=== PATIENT | female | born 1990 | race Caucasian/White ===

== ENCOUNTER 2020-05-22 00:24 | Inpatient (IN) | payer OTHER, SELFPAY ==
[2020-05-22] VITALS (20 sets, daily range): BP systolic 85–136; BP diastolic 44–74; PULSE 16–99; RESP 16–82; TEMP 36.1–37.2; O2SAT 95–100; BMI 25.1
[2020-05-22 00:56] LABS: Absolute Lymphocyte Count 1.92 X10^3/uL (0.83-4.51); Absolute Neutrophil Count 6.4 X10^3/uL (2.0-7.7); Basophil# 0.04 X10^3/uL; Basophil% 0.4 % (0-1); Eosinophil# 0.15 X10^3/uL; Eosinophils% 1.5 % (0-5); Hematocrit 29.9 % (37-47); Hemoglobin 10.2 g/dL (12.0-15.0); Lymphocyte # 1.92 X10^3/ul (4.0); Lymphocyte % 19.8 % (19-41); Mean Corp Hgb Conc 34.1 g/dL (32-36); Mean Corpuscular Hgb 33.3 pg (27.0-32.0); Mean Corpuscular Volume 97.7 fL (81-99); Mean Platelet Vol. 10.6 fl (6.2-12.0); Monocyte# 1.06 X10^3/uL; Monocyte% 10.9 % (0-10); NRBC Flagged by Analyzer 0 % (0-5); Neutrophil # 6.43 X10^3/uL (2.7-7.7); Neutrophil % 66.2 % (47-70); Platelet Count 195 K/mm3 (150-450); RBC Distribution Width CV 12.3 % (11.6-14.6); RBC Distribution Width SD 43.6 fl (35.1-43.9); Red Blood Count 3.06 M/mm3 (4.2-5.4); White Blood Count 9.7 K/mm3 (4.4-11.0)
[2020-05-22] MEDS: Betamethasone/Betamethasone 30 MG/5 ML Vial 12 MG IM (01:20)
[2020-05-22] MEDS: Acetaminophen 500 MG Tablet 1000 MG PO ×4 (03:34→21:28)
[2020-05-22] MEDS: Lactated Ringers 1,000 ML 999 ML IV (03:36)
[2020-05-22] MEDS: Lactated Ringers 1,000 ML 150 ML IV (04:30)
[2020-05-22] MEDS: Sodium Citrate/Citric Acid 30 ML UDC PO (04:49)
[2020-05-22] MEDS: Cefazolin 2 GM in 0.9% Normal Saline 100 ML IV (05:30)
--- NOTE | 2020-05-22 06:51 | PCM.HP.OB ---
History Date of Admission: 05/22/20 Final RIC: 06/14/20 Gestational age: 36 Weeks and 5 Days History of this : Patient presents with LOF. Allergies No Known Allergies Allergy (Verified 05/22/20 00:36) Home Medications: Home Medications Vit,Calc76/Iron/Folic [Pnv 29-1 Tablet] 1 ea PO DAILY 05/22/20 Smoking Status: Never smoker Alcohol: None Substance Use Type: Sleep Aides Number of Fetus(es): 1 History Past Pregnancies: Past Pregnancies Delivery Date Name GA/ Weeks Outcome Route Wt Sex Labor Length Anesthesia Delivery Location Provider FOB Labs: See [facility] prenatals Physical Exam Vitals: Vital Signs Temp Pulse Resp BP Pulse Ox 98.1 F 78 16 115/60 98 05/22/20 03:36 05/22/20 03:36 05/22/20 03:36 05/22/20 03:36 05/22/20 03:36 General: Alert, Oriented x3 Abdomen: Soft, Non Tender, Non-Distended, Gravid Neurological: Cranial nerves II-XII grossly intact Assessment/Plan This is a 30 year-old, at 36&5 weeks gestational age. Admit to L&D from PPROM Breech - confirmed on US MOD - patient counseled on R/B/A and patient wishes to proceed with delivery Routine care
--- NOTE | 2020-05-22 07:00 | PCM.OPRPT ---
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 She was prepped and draped in the normal sterile fashion in a dorsal supine position with a leftward tilt. After ensuring adequacy of anesthesia the Pfannensteil skin incision was made and carried through to the underlying fascia with a scalpel. The fascia was incised in the midline and carried laterally with the Smyth scissors. The rectus muscles were in the midline and the peritoneum was entered bluntly. The bladder flap was dissected down carefully with the Metzenbaum scissors and blunt dissection. The uterus was incised in a transverse fashion and then incision extended with cephalocaudad traction. The fetus was breech and buttocks were grasped. Fetus was delivered by typical breech maneuvers. No excess traction placed on fetus at any time. Body delivered and 3VC clamped & cut. Then the was handed off to the waiting RN. The placenta was delivered with gentle traction and fundal massage and the uterus was exteriorized and cleared of all clots and debris. The uterine incision was closed with 1 vicryl suture in a running locked fashion. The bovie was used to further obtain further hemostasis of the uterine incision. A second imbricating layer of monocryl was placed. 1 additional figure of eight suture placed to further obtain hemostasis of the uterine incision. The uterus was returned to the peritoneal cavity. The pelvis was irrigated & then cleared of all clots and debris. The uterine incision was reexamined and found to be hemostatic. Some tracy was placed over the uterine incision due to the denuded areas. The fascia was closed with looped PDS suture in a running standard fashion. The subcutaneous tissue was examined & any bleeding bovie cauterized. The subcutaneous tissue was reapproximated with plain gut suture. The skin was closed in a subcuticular fashion by the RAILROAD CAR PAINTER with me present in the labor and delivery suite. I performed the remainder of the procedure w/ assistance. Amniotic Membrane Rupture Type: Spontaneous Amniotic Fluid Description: Clear Placenta Disposition: [facility] Fluids Replaced: 1500ml Cord Entanglement: Around neck x 2, loose Esitmated Blood Loss (ml): 900ml Gender: Male (1 minute): 7 (5 minute): 9 Delayed cord clamping: No Antibiotic Given: Ancef 2 grams IV x1, Zithromax 500 mg/5 mL X1 Complications: None - Admit VTE Documentation VTE Present on Admission: No
[2020-05-22] MEDS: Oxytocin 30 units/NS 500 ml 30 UNITS/500 ML IV.SOLN 167 UNITS IV (07:10)
[2020-05-22] MEDS: Lactated Ringers 1,000 ML 100 ML IV (10:14)
[2020-05-22] MEDS: Senna/Docusate Sodium 1 Tablet PO (10:29)
[2020-05-22] MEDS: Ketorolac 30 MG/ML Syringe IV ×2 (12:26→18:21)
[2020-05-22] MEDS: 0.9% Saline Lock 10 ML Syringe IV (16:30)
[2020-05-22] MEDS: Enoxaparin 40 MG/0.4 ML Syringe SC (18:21)
[2020-05-23] MEDS: Ibuprofen 600 MG Tablet PO ×5 (00:02→23:59)
[2020-05-23 00:05] VITALS: BP 98/53; PULSE 75; RESP 15; O2SAT 98
[2020-05-23] MEDS: Acetaminophen 500 MG Tablet 1000 MG PO ×4 (03:41→22:20)
[2020-05-23 03:44] VITALS: BP 110/44; PULSE 69; RESP 16; TEMP 36.6
--- NOTE | 2020-05-23 06:23 | NURSING ---
0605- Pt. introduced to going home paper and CPR ipad brought into room.
[2020-05-23 06:30] LABS: Hematocrit 25.4 % (37-47); Hemoglobin 8.5 g/dL (12.0-15.0); Mean Corp Hgb Conc 33.5 g/dL (32-36); Mean Corpuscular Hgb 33.9 pg (27.0-32.0); Mean Corpuscular Volume 101.2 fL (81-99); Mean Platelet Vol. 10.7 fl (6.2-12.0); Platelet Count 166 K/mm3 (150-450); RBC Distribution Width CV 12.6 % (11.6-14.6); RBC Distribution Width SD 45.9 fl (35.1-43.9); Red Blood Count 2.51 M/mm3 (4.2-5.4); White Blood Count 11.6 K/mm3 (4.4-11.0)
--- NOTE | 2020-05-23 08:35 | PN.OBGYN_ITS ---
Subjective: Patient seen at bedside. Eating breakfast tray. Stated feeling good. Pain is controlled with Motrin and Tylenol. Denies any weakness, dizziness, SOB, or chest pain. Ambulating and voiding without difficulty. Passing flatus. is going well. Desires discharge home tomorrow. Objective: Dressing is dry and intact - Physical Exam Vitals/I&O's: Vital Signs Temp Pulse Resp BP Pulse Ox 97.9 F 69 16 110/44 L 98 05/23/20 03:44 05/23/20 03:44 05/23/20 03:44 05/23/20 03:44 05/23/20 00:05 Oxygen Delivery Method Room Air Weight: 170 lb Body Mass Index (BMI) 25.1 Intake and Output for Last 24 Hours 05/21/20 05/22/20 05/23/20 23:59 23:59 23:59 Intake Total 3604.12 / 3604.12 Output Total 3150 / 3150 550 / 550 Balance 454.12 / 454.12 -550 / -550 General: Alert, Oriented x3, Cooperative, No apparent distress Oral: Moist Mucosa Lungs: Normal air movement Cardiovascular: Regular rate Abdomen: Soft, Non Tender Skin: No rashes Neurological: Cranial nerves II-XII grossly intact Psych/Mental Status: Normal Affect, Appropriate Laboratory Results 05/23/20 06:08: WBC 11.6 H, RBC 2.51 L, Hgb 8.5 L, Hct 25.4 L, MCV 101.2 H, MCH 33.9 H, MCHC 33.5, RDW Std Deviation 45.9 H, RDW Coeff of Valentina 12.6, Plt Count 166, MPV 10.7 Current Medications Acetaminophen (Tylenol) 1,000 mg PO Q6H [facility] Last Admin: 05/23/20 03:41 Dose: 1,000 mg Documented by: Bisacodyl (Dulcolax) 10 mg RECTAL UD PRN PRN Reason: If no BM Diphenhydramine HCl (Benadryl) 25 mg PO Q6H PRN PRN PRN Reason: ITCHING Stop: 05/23/20 11:18 Enoxaparin Sodium (Lovenox) 40 mg SC DAILY@1800 [facility] Last Admin: 05/22/20 18:21 Dose: 40 mg Documented by: Hydrocortisone (Hytone) 1 applic TOPICAL TID PRN PRN; Protocol PRN Reason: Discomfort Naloxone HCl 4 mg/ Dextrose 504 mls @ 0 mls/hr IV .Q0M PRN; Protocol PRN Reason: Respiratory depression Ibuprofen (Motrin) 600 mg PO Q6 [facility] Last Admin: 05/23/20 06:04 Dose: 600 mg Documented by: Methylergonovine Maleate (Methergine) 0.2 mg IM X1 PRN PRN Reason: Uterine Atony Nalbuphine HCl (Nubain) 5 mg IV Q3H PRN PRN PRN Reason: ITCHING Stop: 05/23/20 11:18 Naloxone HCl (Narcan) 0.02 mg IV Q1M PRN PRN Reason: RR <10 and pt unresponsive Ondansetron HCl (Zofran) 4 mg IV Q4H PRN PRN PRN Reason: Nausea Oxycodone HCl (Oxyir) 5 - 10 mg PO Q4H PRN PRN PRN Reason: Pain Score 4-10/10 Multivit/Folic Acid/Iron (Prenatabs Fa) 1 tablet PO DAILY@1200 [facility] Last Admin: 05/22/20 11:13 Dose: Not Given Documented by: Prochlorperazine Edisylate (Compazine Iv) 10 mg IV Q6H PRN PRN PRN Reason: NAUSEA Senna/Docusate Sodium (Senokot-S, Adriana-Colace) 0 tablet PO DAILY [facility] Last Admin: 05/22/20 10:29 Dose: 2 tablet Documented by: Simethicone (Mylicon) 80 mg PO PCHS PRN PRN Reason: Indigestion/stomach pain Sodium Chloride () 5 - 15 ml IV UD PRN PRN Reason: SALINE FLUSH Last Admin: 05/22/20 16:30 Dose: 10 ml Documented by: Medical Necessity - Tobacco Use Smoking Status: Never smoker Assessment/Plan Post Op Primary C/S Day 1 Pain controlled HGB- 8.5 will start PO Iron today and order CBC for AM Ambulate today Anticipate discharge home tomorrow
[2020-05-23 09:04] VITALS: BP 107/69; PULSE 76; RESP 16; TEMP 36.8
[2020-05-23] MEDS: Senna/Docusate Sodium 1 Tablet PO (10:29)
[2020-05-23] MEDS: Ferrous Sulfate 325 MG Tablet PO ×2 (12:28→17:05)
[2020-05-23 15:00] VITALS: BP 120/69; PULSE 70; RESP 16; TEMP 36.6
[2020-05-23] MEDS: Prenatal Vits Tablet 1 TABLET PO (17:05)
[2020-05-23] MEDS: Enoxaparin 40 MG/0.4 ML Syringe SC (18:33)
[2020-05-23 19:45] VITALS: BP 113/71; PULSE 75; RESP 16; TEMP 36.6; O2SAT 99
[2020-05-24 02:30] VITALS: BP 106/69; PULSE 76; RESP 16; TEMP 36.7
[2020-05-24] MEDS: Acetaminophen 500 MG Tablet 1000 MG PO ×2 (04:08→10:40)
[2020-05-24 04:20] LABS: Hematocrit 25.9 % (37-47); Hemoglobin 8.6 g/dL (12.0-15.0); Mean Corp Hgb Conc 33.2 g/dL (32-36); Mean Corpuscular Hgb 33.5 pg (27.0-32.0); Mean Corpuscular Volume 100.8 fL (81-99); Mean Platelet Vol. 10.2 fl (6.2-12.0); Platelet Count 181 K/mm3 (150-450); RBC Distribution Width CV 12.8 % (11.6-14.6); RBC Distribution Width SD 46.8 fl (35.1-43.9); Red Blood Count 2.57 M/mm3 (4.2-5.4); White Blood Count 11.1 K/mm3 (4.4-11.0)
[2020-05-24] MEDS: Ibuprofen 600 MG Tablet PO (06:15)
--- NOTE | 2020-05-24 08:26 | PCM.PN.OB ---
Subjective: Doing well per patient and nursing staff. Ambulating and taking PO without difficulty. Pain is controlled. Denies any weakness, dizziness, SOB, or chest pain. Ambulating and voiding without difficulty. Passing flatus. is going well. Desires discharge home today. - Physical Exam Vitals/I&O's: Vital Signs Temp Pulse Resp BP Pulse Ox 98.1 F 76 16 106/69 99 05/24/20 02:30 05/24/20 02:30 05/24/20 02:30 05/24/20 02:30 05/23/20 19:45 Oxygen Delivery Method Room Air Weight: 170 lb Body Mass Index (BMI) 25.1 Intake and Output for Last 24 Hours 05/22/20 05/23/20 05/24/20 23:59 23:59 23:59 Intake Total 3604.12 / 3604.12 Output Total 3150 / 3150 550 / 550 Balance 454.12 / 454.12 -550 / -550 General: Alert, Oriented x3 HEENT: Atraumatic, Normocephalic Neck: Trachea Midline Lungs: Clear to auscultation, Normal air movement, No rhonchi, No wheeze Cardiovascular: Regular rate, Regular Rhythm, No murmurs Abdomen: Bowel Sounds Present - Findus firm 2 below U. Dressing dry and intact Extremities: No edema Neurological: Deep Tendon Reflexes 2+/4 and Symmetrical Psych/Mental Status: Normal Affect, Appropriate Laboratory Results 05/24/20 04:10: WBC 11.1 H, RBC 2.57 L, Hgb 8.6 L, Hct 25.9 L, MCV 100.8 H, MCH 33.5 H, MCHC 33.2, RDW Std Deviation 46.8 H, RDW Coeff of Valentina 12.8, Plt Count 181, MPV 10.2 Current Medications Acetaminophen (Tylenol) 1,000 mg PO Q6H [facility] Last Admin: 05/24/20 04:08 Dose: 1,000 mg Documented by: Bisacodyl (Dulcolax) 10 mg RECTAL UD PRN PRN Reason: If no BM Enoxaparin Sodium (Lovenox) 40 mg SC DAILY@1800 [facility] Last Admin: 05/23/20 18:33 Dose: 40 mg Documented by: Ferrous Sulfate (Ferrous Sulfate) 325 mg PO 1200,1700 [facility] Last Admin: 05/23/20 17:05 Dose: 325 mg Documented by: Hydrocortisone (Hytone) 1 applic TOPICAL TID PRN PRN; Protocol PRN Reason: Discomfort Naloxone HCl 4 mg/ Dextrose 504 mls @ 0 mls/hr IV .Q0M PRN; Protocol PRN Reason: Respiratory depression Ibuprofen (Motrin) 600 mg PO Q6 [facility] Last Admin: 05/24/20 06:15 Dose: 600 mg Documented by: Methylergonovine Maleate (Methergine) 0.2 mg IM X1 PRN PRN Reason: Uterine Atony Naloxone HCl (Narcan) 0.02 mg IV Q1M PRN PRN Reason: RR <10 and pt unresponsive Ondansetron HCl (Zofran) 4 mg IV Q4H PRN PRN PRN Reason: Nausea Oxycodone HCl (Oxyir) 5 - 10 mg PO Q4H PRN PRN PRN Reason: Pain Score 4-10/10 Multivit/Folic Acid/Iron (Prenatabs Fa) 1 tablet PO DAILY@1200 [facility] Last Admin: 05/23/20 17:05 Dose: 1 tablet Documented by: Prochlorperazine Edisylate (Compazine Iv) 10 mg IV Q6H PRN PRN PRN Reason: NAUSEA Senna/Docusate Sodium (Senokot-S, Adriana-Colace) 0 tablet PO DAILY [facility] Last Admin: 05/23/20 10:29 Dose: 2 tablet Documented by: Simethicone (Mylicon) 80 mg PO P[facility]S PRN PRN Reason: Indigestion/stomach pain Sodium Chloride () 5 - 15 ml IV UD PRN PRN Reason: SALINE FLUSH Last Admin: 05/22/20 16:30 Dose: 10 ml Documented by: Medical Necessity - Tobacco Use Smoking Status: Never smoker Assessment/Plan A: POD #2 LTCS Acute blood loss anemia P: 1) Discharge and instructions reviewed 2) Hgb 8.6, stable, continue iron supplement 3) Follow up in 1 week for incision check and 6 weeks for visit. 4) D/C home today
--- NOTE | 2020-05-24 08:34 | DCINST_ITS ---
Discharge Diet: No Restrictions Discharge Activity: May Not Drive - for 2 weeks or while taking narcotic pain meds., May Shower, May Take a Tub Bath - in 7 days. May resume sexual activity in: 4-6 weeks Weight Bearing Status: Full weight bearing Lifting Restrictions: 20 pounds Additional Activity Instructions:: Nothing in the vagina for 4-6 weeks. You may return to work/school in 6 weeks. Call your doctor if your incision/area has: Continuous Slow Oozing, Sudden Increased Bleeding, Increased Pain/ Swelling, Increased Redness, Foul Smelling Discharge Call your doctor if you observe: Fever of 101 or Higher Suture Line Care: Avoid Pulling/Pushing, Avoid Pinching/Bending Additional Instructions: If you experience any of the following, contact your healthcare provider. * Bleeding that soaks a pad every hour for 2 hours * Fever 100.4 or higher * Unrelieved incision or abdominal pain * Swelling, redness, discharge or bleeding from your incision or episiotomy site * Your incision begins to separate * Problems urinating (including inability to urinate or burning while urinating). * Visual changes * Severe headache * Flu-like symptoms * Pain or redness in one of both of your breasts * Pain, warmth, tenderness or swelling in your legs, especially the calf area * Frequent nausea and vomiting * Symptoms of depression or anxiety If you experience any of the following, call 911 or go to the nearest Emergency Room. * Chest pain * Problems breathing * Seizure activity * Partial or complete paralysis of a body part, slurred speech, weakness or drooping of the face, or a sudden inability to walk or hold your balance Allergies/Adverse Reactions: Allergies No Known Allergies Allergy (Verified 05/22/20 00:36) Medications to take at Discharge Vit,Calc76/Iron/Folic [Pnv 29-1 Tablet] 1 ea PO DAILY 05/22/20 Ferrous Sulfate 325 mg PO 1200,1700 tab 05/24/20 Oxycodone [Oxyir] 5 mg PO Q4H PRN PRN 7 Days #20 tab 05/24/20 The following prescriptions were given: Oxycodone [Oxyir] 5 mg PO Q4H PRN PRN 7 Days #20 tab PRN Reason: Pain Score 4-10/10 Transmission Status: Pending to [facility] Follow-Up: Call to make an appointment with your doctor for an incision check in 1-2 weeks. You will also need a 6 week post- follow up appointment. Test results from this visit will be discussed in further detail at your follow- up appointment, if applicable. Primary Care Physician: Care Physician,No Primary [Primary Care Provider] -
--- NOTE | 2020-05-24 08:35 | PCM.DC.SUM ---
Discharge Date and Diagnosis Date of Admission: 05/22/20 Date of Discharge: 05/24/20 Hospital Course and Treatment Summary of Care Provided: The patient is a 30 year old F [ 36 Weeks and 5 Days presented with PROM and breech presentation and decision for primary LTCS. course with acute blood loss anemia Hgb 8.5 and iron supplementation. Uncomplicated course and discharge home on day #2. ] - Physical Exam Vitals/I&O's: Vital Signs Temp Pulse Resp BP Pulse Ox 98.1 F 76 16 106/69 99 05/24/20 02:30 05/24/20 02:30 05/24/20 02:30 05/24/20 02:30 05/23/20 19:45 Oxygen Delivery Method Room Air Weight: 170 lb Body Mass Index (BMI) 25.1 Intake and Output for Last 24 Hours 05/22/20 05/23/20 05/24/20 23:59 23:59 23:59 Intake Total 3604.12 / 3604.12 Output Total 3150 / 3150 550 / 550 Balance 454.12 / 454.12 -550 / -550 Laboratory Results 05/24/20 04:10: WBC 11.1 H, RBC 2.57 L, Hgb 8.6 L, Hct 25.9 L, MCV 100.8 H, MCH 33.5 H, MCHC 33.2, RDW Std Deviation 46.8 H, RDW Coeff of Valentina 12.8, Plt Count 181, MPV 10.2 Current Medications Acetaminophen (Tylenol) 1,000 mg PO Q6H [facility] Last Admin: 05/24/20 04:08 Dose: 1,000 mg Documented by: Bisacodyl (Dulcolax) 10 mg RECTAL UD PRN PRN Reason: If no BM Enoxaparin Sodium (Lovenox) 40 mg SC DAILY@1800 [facility] Last Admin: 05/23/20 18:33 Dose: 40 mg Documented by: Ferrous Sulfate (Ferrous Sulfate) 325 mg PO 1200,1700 [facility] Last Admin: 05/23/20 17:05 Dose: 325 mg Documented by: Hydrocortisone (Hytone) 1 applic TOPICAL TID PRN PRN; Protocol PRN Reason: Discomfort Naloxone HCl 4 mg/ Dextrose 504 mls @ 0 mls/hr IV .Q0M PRN; Protocol PRN Reason: Respiratory depression Ibuprofen (Motrin) 600 mg PO Q6 [facility] Last Admin: 05/24/20 06:15 Dose: 600 mg Documented by: Methylergonovine Maleate (Methergine) 0.2 mg IM X1 PRN PRN Reason: Uterine Atony Naloxone HCl (Narcan) 0.02 mg IV Q1M PRN PRN Reason: RR <10 and pt unresponsive Ondansetron HCl (Zofran) 4 mg IV Q4H PRN PRN PRN Reason: Nausea Oxycodone HCl (Oxyir) 5 - 10 mg PO Q4H PRN PRN PRN Reason: Pain Score 4-10/10 Multivit/Folic Acid/Iron (Prenatabs Fa) 1 tablet PO DAILY@1200 [facility] Last Admin: 05/23/20 17:05 Dose: 1 tablet Documented by: Prochlorperazine Edisylate (Compazine Iv) 10 mg IV Q6H PRN PRN PRN Reason: NAUSEA Senna/Docusate Sodium (Senokot-S, Adriana-Colace) 0 tablet PO DAILY [facility] Last Admin: 05/23/20 10:29 Dose: 2 tablet Documented by: Simethicone (Mylicon) 80 mg PO [facility] PRN PRN Reason: Indigestion/stomach pain Sodium Chloride () 5 - 15 ml IV UD PRN PRN Reason: SALINE FLUSH Last Admin: 05/22/20 16:30 Dose: 10 ml Documented by: Discharge Diet: No Restrictions Discharge Activity: May Not Drive - for 2 weeks or while taking narcotic pain meds., May Shower, May Take a Tub Bath - in 7 days. May resume sexual activity in: 4-6 weeks Weight Bearing Status: Full weight bearing Additional Activity Instructions:: Nothing in the vagina for 4-6 weeks. You may return to work/school in 6 weeks. Call your doctor if your incision/area has: Continuous Slow Oozing, Sudden Increased Bleeding, Increased Pain/ Swelling, Increased Redness, Foul Smelling Discharge Call your doctor if you observe: Fever of 101 or Higher Suture Line Care: Avoid Pulling/Pushing, Avoid Pinching/Bending Home Medications: Medications to take at Discharge Vit,Calc76/Iron/Folic [Pnv 29-1 Tablet] 1 ea PO DAILY 05/22/20 Ferrous Sulfate 325 mg PO 1200,1700 tab 05/24/20 Oxycodone [Oxyir] 5 mg PO Q4H PRN PRN 7 Days #20 tab 05/24/20 Following Prescriptions Were Given to Patient: Oxycodone [Oxyir] 5 mg PO Q4H PRN PRN 7 Days #20 tab PRN Reason: Pain Score 4-10/10 Transmission Status: Pending to [facility] Primary Care Physician: Care Physician,No Primary [Primary Care Provider] - Medical Necessity - Tobacco Use Smoking Status: Never smoker Meaningful Use Info Meaningful Use Diagnoses (Choose all that apply): None applicable
[2020-05-24 08:45] VITALS: BP 122/63; PULSE 88; RESP 16; TEMP 36.8; O2SAT 97
[2020-05-24 11:30] VITALS: BP 122/63; PULSE 88; RESP 16; TEMP 36.8; O2SAT 97
== END 2020-05-24 11:40 | disposition home or self-care (01) | DRG 786 ==
LOC: WPOUT 00:53 → WP 00:53
PROVIDERS: Advanced Practice Midwife; Admitting Provider Obstetrics & Gynecology; Referring Provider Obstetrics & Gynecology; Visit Provider Obstetrics & Gynecology
DX: O42.913 Preterm premature rupture of membranes, unspecified as to length of time between rupture and onset of labor, third trimester (principal); O60.14X0 Preterm labor third trimester with preterm delivery third trimester, not applicable or unspecified; O90.81 Anemia of the puerperium; D62 Acute posthemorrhagic anemia; O32.1XX0 Maternal care for breech presentation, not applicable or unspecified; O69.81X0 Labor and delivery complicated by cord around neck, without compression, not applicable or unspecified; Z3A.36 36 weeks gestation of pregnancy; Z37.0 Single live birth
CPT/HCPCS: 59025; 59050; 85025; 85027; 86850; 86900; 86901; 99218; J7120; A4216; G0378; J0702; J2405